=== PATIENT | female | born 1950 | race Caucasian/White ===

== ENCOUNTER 2019-02-18 12:07 | Outpatient (CLI) | payer OTHER ==
[2019-02-18 12:37] LABS: BASOPHILS # (AUTO) 0.1 10^3/uL (0.0-0.1); BASOPHILS % (AUTO) 0.6 %; EOSINOPHILS # (AUTO) 0.2 10^3/uL (0.0-0.7); HGB - HEMOGLOBIN 14.1 g/dL (12.0-16.0); LYMPHOCYTES # (AUTO) 2.3 10^3/uL (1.5-3.5); LYMPHOCYTES % (AUTO) 27.1 %; MEAN CORPUSCULAR HEMOGLOBIN 29.7 pg (27.0-31.0); MEAN CORPUSCULAR HGB CONC 32.9 g/dL (32.0-36.0); MEAN CORPUSCULAR VOLUME 90.3 fL (81.0-99.0); MEAN PLATELET VOLUME 10.1 fL (7.9-10.8); MONOCYTES # (AUTO) 0.4 10^3/uL (0.0-1.0); MONOCYTES % (AUTO) 4.7 %; NEUTROPHILS # (AUTO) 5.6 10^3/uL (1.5-6.6); NEUTROPHILS % (AUTO) 65.2 %; PLT - PLATELET COUNT 294 10^3/uL (130-450); RED BLOOD COUNT 4.74 10^6/uL (4.20-5.40); RED CELL DISTRIBUTION WIDTH 12.1 % (12.0-15.0); WHITE BLOOD COUNT 8.6 x10^3/uL (4.8-10.8)
[2019-02-18 13:09] LABS: ALBUMIN 4.5 g/dL (3.2-5.5); ALBUMIN/GLOBULIN RATIO 1.7 (1.0-2.2); BILIRUBIN,TOTAL 0.7 mg/dL (0.2-1.0); CREATININE 0.7 mg/dL (0.4-1.0); TOTAL PROTEIN 7.2 g/dL (6.7-8.2)
== END 2019-02-18 12:08 | disposition home or self-care (01) ==
LOC: LAB 12:07
PROVIDERS: ATTEND Podiatrist Foot & Ankle Surgery
DX: Z01.818 Encounter for other preprocedural examination (principal)
CPT/HCPCS: 36415; 80053; 82306; 85025; 87640; 93005

== ENCOUNTER 2022-03-15 07:00 | Outpatient (CLI) | payer MEDICARE | END 2022-03-15 23:59 | disposition home or self-care (01) | LOC: LAB.S 07:00 | PROVIDERS: ATTEND Physician Assistant Medical | DX: L72.3 Sebaceous cyst (principal) | CPT/HCPCS: 87070; 87205 ==

== ENCOUNTER 2023-07-17 07:44 | Emergency (ER) | payer MEDICARE ==
--- NOTE | 2023-07-17 09:17 | ED Physician Documentation ---
History of Present Illness - Stated complaint Stated Complaint: GLF, LOWER BACK PX - Chief complaint Chief Complaint: Trauma Ext - History obtained from History obtained from: Patient - Additonal information Additional information: The patient comes to the emergency department chief complaint of right pelvic pain after ground-level fall yesterday. She states that she was carrying a water dispenser for her cats and caught her foot against the hearth of her fireplace. It caused her to lose her balance backward and she sat down hard on the floor. She states it was a carpeted surface and she felt okay initially afterwards but then began to develop a sharp, stabbing pain in her lower right pelvic area that mainly occurs with standing or walking. She states if she is sitting or laying down, she generally does not feel it. It also seems to feel better after she has been laying down for a while. If she gets up to stand or walk after that, the pain is not as bad. She states that last night she was able to go to the bathroom and sit on the toilet with no pain but this morning, when she went to sit on the toilet it hurt very badly again so she had to go lay down. This is when she decided to come here. She states that right now, sitting in bed she does not have any pain. No other injuries whatsoever. She did not hit her head. No right hip pain. No other complaints at this time. PD PAST MEDICAL HISTORY - Past Medical History Past Medical History: Yes Cardiovascular: Hypertension, Other Neuro: Peripheral neuropathy - Past Surgical History Past Surgical History: Yes General: Appendectomy Ortho: Shoulder arthroplasty, Spine surgery, Other /DERRICK MAN: Hysterectomy - Present Medications Home Medications: Ambulatory Orders Medication Instructions Recorded Confirmed Fluticasone [Flonase] 2 spray CHANDLER DAILY 07/17/23 07/17/23 HYDROcod/ACETAM 5/325 [[place] 5/325] 1 - 2 tablet PO Q6H PRN #10 tablet 07/17/23 - Allergies Allergies/Adverse Reactions: Allergies Allergy/AdvReac Type Severity Reaction Status Date / Time codeine Allergy Emesis Verified 07/17/23 08:00 - Social History Does the pt smoke?: Yes Smoking Status: Current every day smoker Does the pt drink ETOH?: No Does the pt have substance abuse?: No PD ED PE NORMAL - Vitals Vital signs reviewed: Yes - General General: Alert and oriented X 3, No acute distress, Well developed/nourished - HEENT HEENT: Atraumatic, EOMI, Moist mucous membranes - Neck Neck: Supple, no meningeal sign, No bony TTP - Cardiac Cardiac: RRR, No murmur - Respiratory Respiratory: No respiratory distress, Clear bilaterally - Abdomen Abdomen: Soft, Non tender, Non distended - Back Back: No CVA TTP, No spinal TTP - Derm Derm: Normal color, Warm and dry, No rash - Extremities Extremities: No deformity, Normal ROM s pain (No pain with range of motion right hip), No edema - Neuro Neuro: Alert and oriented X 3, No motor deficit (.), No sensory deficit, Other (Otherwise grossly intact) - Psych Psych: Normal mood, Normal affect Results - Vitals Vitals: Vital Signs - 24 hr 07/17/23 07/17/23 07:54 10:39 Temperature 36.0 C L Heart Rate 57 L 66 Respiratory 15 15 Rate Blood Pressure 151/67 H 147/64 H O2 Saturation 98 99 Oxygen O2 Source Room air - Rads (name of study) X-ray pelvis Relevant Findings:: Final report received, See rad report (Negative) PD Medical Decision Making - ED course Complexity details: reviewed results, re-evaluated patient, considered differential, d/w patient, d/w family ED course: The patient was worked up with a pelvic x-ray and treated symptomatically with Toradol and Decadron. She did not have any findings whatsoever on exam, and pain seem to be intermittent even with standing or walking, and I suspected that her injury was more likely to be soft tissue. The patient was found to be feeling little better on reevaluation. Her x-ray series was negative. I discussed with the patient that a suspect a soft tissue injury, and as such, she should expect to have some level of symptoms for the next several weeks potentially. We have discussed that the symptoms should begin to gradually improve after the first week and if they are not, she should call her doctor to discuss whether MRI would be an appropriate next step. At this point in time patient stable for discharge. We have discussed symptomatic management at home and the usual indications for return. Departure - Departure Disposition: 01 Home, Self Care Clinical Impression: Strain of muscle, fascia and tendon of pelvis, initial encounter Condition: Stable Instructions: ED Strain Groin Prescriptions: HYDROcod/ACETAM 5/325 [[place] 5/325] 1 - 2 tablet PO Q6H PRN #10 tablet PRN Reason: Pain Comments: Your x-ray looks good as far as concern over any bony injury in your pelvis. You do have some abnormality of the bone of your left femur, which is probably related to your [id number]; however, you should follow-up with your doctor about this to discuss whether MRI would be a good idea at this point. Most likely, you have strained the soft tissues in your pelvis, which can include muscle, tendon, and/or the fascia or connecting tissue. The vast yolis ority these sorts of injuries heal on their own in time and just require some weeks of patients and symptomatic treatment to blow over. You may walk and move and bear weight as much as feels tolerable to you during that time. In general, the symptoms start to gradually improve after the first week. This would be expected in this case as well, but if you get to the second week and noticed that you really have not had any improvement of all, then you will need to follow-up with your primary doctor to discuss whether MRI should be done to further evaluate this. In the meantime, you may take ibuprofen and the pain medication prescribed, as needed. The prescription for the pain medication has been electronically transmitted to the [facility] pharmacy here in [place], your pharmacy of choice on record. Forms: PCP List Discharge Date/Time: 07/17/23 10:41
[2023-07-17] MEDS: KETOROLAC 60 MG/2 ML VIAL IM STA (09:27)
[2023-07-17] MEDS: DEXAMETHASONE 10 MG/ML VIAL IM STA (09:28)
--- NOTE | 2023-07-17 09:44 | XRAY Report ---
PROCEDURE: Pelvis 1-2V INDICATIONS: R pelvic pain after fall TECHNIQUE: 1 view(s) of the pelvis acquired. COMPARISON: None. FINDINGS: Bones: No fractures or dislocations. Mixed lytic-sclerotic lesion in the proximal left femur which m ay represent an enchondroma. L4-L5 fixation hardware. Soft tissues: Visualized bowel gas pattern is normal. No suspicious soft tissue calcifications. IMPRESSION: No acute bony abnormality. Possible proximal left femur enchondroma. Recommend MRI of the left hip or nuclear medicine bone scan to exclude more aggressive etiologies. Reviewed by: Emily Colón MD, PhD on 07/17/2023 9:42 AM PDT Approved by: Emily Colón MD, PhD on 07/17/2023 9:42 AM PDT Station ID: [id number]
[2023-07-17 10:48] VITALS: BP 147/64; O2SAT 99
== END 2023-07-17 10:41 | disposition home or self-care (01) ==
LOC: ED 07:44
DX: S39.013A Strain of muscle, fascia and tendon of pelvis, initial encounter (principal); W01.198A Fall on same level from slipping, tripping and stumbling with subsequent striking against other object, initial encounter; Y93.01 Activity, walking, marching and hiking; Y92.008 Other place in unspecified non-institutional (private) residence as the place of occurrence of the external cause; F17.200 Nicotine dependence, unspecified, uncomplicated; R93.6 Abnormal findings on diagnostic imaging of limbs; G60.0 Hereditary motor and sensory neuropathy
CPT/HCPCS: 96372; 99283

== ENCOUNTER 2023-07-24 08:24 | Outpatient (CLI) | payer MEDICARE ==
[~2023-07-24 08:24] MED LIST: GADOTERATE MEGLUMINE 7.5 MMOL/15 ML VIAL ONE
[2023-07-24 08:45] LABS: CREATININE 0.8 mg/dL (0.6-1.3)
[2023-07-24] MEDS: GADOTERATE MEGLUMINE 7.5 MMOL/15 ML VIAL IVP ONE (09:55)
--- NOTE | 2023-07-24 17:23 | MRI Report ---
PROCEDURE: Hip LT W/WO INDICATIONS: NEOPLASM OF LONG BONE L LOWER LIMB CONTRAST: CLARISCAN 13.2 ML TECHNIQUE: Noncontrast coronal T1 spin echo and STIR through the bony pelvis. Coronal and axial T2 fast spin ec ho with fat saturation, axial T1 spin echo with fat saturation, sagittal T1 spin echo, and oblique ax ial T2 fast spin echo with fat saturation through the hip. Post-contrast axial, coronal, and sagitta l spin echo with fat saturation through the hip. COMPARISON: Pelvic radiograph dated 07/17/2023 FINDINGS: Image quality: Excellent. Bones and joints: [id number] bilateral hip joint osteoarthritic changes are seen with joint spa ce narrowing, subchondral sclerosis and marginal osteophyte formation. There is no acute fracture or dislocation. No evidence of avascular necrosis of femoral head. Post fusion changes are seen in visua lized lower lumbar spine with susceptibility artifacts. There is a well-circumscribed heterogeneously T2 hyperintense and T1 hypointense structure within medullary space of proximal femur/intertrochante clair region and measures up to 1.7 x 1.6 x 2.6 cm in size series 4 image 33 and series 2 image 15. No abnormal contrast enhancement is noted within this structure. No associated marrow edema or cortical erosion. No abnormal periosteal reaction. Small subcortical T2 hyperintense signal are noted along th e superior aspect of bilateral femoral head and neck region likely represent benign intraosseous cyst formation. No other area of intraosseous lesion or enhancement is seen. Tendons: Distal left gluteus medius and minimus tendinosis at their insertion on greater trochanter i s seen. The iliopsoas tendon appears intact, without adjacent bursal fluid collections. Tendinosis in volving origin of left hamstring tendons at ischial tuberosity is also noted. Labrum and cartilage: Diffuse thinning of articulating cartilage over left femoral head is noted. The re is signal abnormality and fraying of posterior superior labrum suggestive of posterior superior la bral tear. Soft tissues: No enhancing soft tissue mass or drainable fluid collection. Visualized muscles demonst rate normal bulk and internal signal. The proximal sciatic neurovascular bundle appears normal adjac ent to the hamstring tendons. No free pelvic fluid. Bladder wall thickness is normal. Genitourinar y structures and bowel loops appear normal where visualized. IMPRESSION: 1. Benign-appearing intraosseous lesion within medullary space of left proximal femur/intertrochanter ic region measures 1.7 x 1.6 x 2.6 cm in size most consistent with benign enchondroma. Radiographic f ollow-up is recommended. No suspicious intraosseous lesion or abnormal intraosseous enhancement. 2. Mild to moderate bilateral hip joint osteoarthritis. No fracture or dislocation. No evidence of av ascular necrosis of femoral head. Postsurgical changes in lower lumbar spine. 3. Distal left gluteus medius and minimus tendinosis. Tendinosis involving left hamstring tendon orig ins at ischial tuberosity. No enhancing soft tissue mass or drainable fluid collection. 4. Suggestion of extensive posterior superior left hip labral tear. Reviewed by: Sridhar Storey MD on 07/24/2023 5:22 PM PDT Approved by: Sridhar Storey MD on 07/24/2023 5:22 PM PDT Station ID: [id number]
== END 2023-07-24 08:25 | disposition home or self-care (01) ==
LOC: LAB 08:24
PROVIDERS: ATTEND Registered Nurse
DX: D16.22 Benign neoplasm of long bones of left lower limb (principal); M16.0 Bilateral primary osteoarthritis of hip; Z98.1 Arthrodesis status; M67.854 Other specified disorders of tendon, left hip
CPT/HCPCS: 36415; 82565